=== PATIENT | male | born 1955 | race Caucasian/White ===

== ENCOUNTER 2024-04-15 22:45 | Inpatient (IN) | payer MEDICARE ==
[~2024-04-15] VITALS: Ht 170.2 cm; Wt 108.9 kg
[2024-04-16] MEDS: VANCOMYCIN HCL 1.25 GM in IV D5W 260 ML IV ONE (00:30)
[2024-04-16] MEDS ORDERED: VANCOMYCIN 500 MG VIAL ONE (00:36)
[2024-04-16] MEDS ORDERED: VANCOMYCIN 1 GM /D5W 250 ML PB IV ONE (00:37)
[2024-04-16 00:47] LABS: BASOPHILS # (AUTO) 0.1 K/uL (0.0-0.2); BASOPHILS % (AUTO) 0.4 % (0.0-2.0); EOSINOPHILS # (AUTO) 0.1 K/uL (0.0-0.7); EOSINOPHILS % (AUTO) 0.7 % (0.0-6.0); HEMATOCRIT 42 % (39-51); HEMOGLOBIN 14.2 g/dL (13.5-17.5); LYMPHOCYTES # (AUTO) 1.6 K/uL (0.8-4.8); LYMPHOCYTES % (AUTO) 10.3 % (20.0-44.0); MEAN CORPUSCULAR HEMOGLOBIN 31 PG (26.0-33.0); MEAN CORPUSCULAR HGB CONC 34 g/dl (31.0-36.0); MEAN CORPUSCULAR VOLUME 91 fL (80-96); MONOCYTES # (AUTO) 1.2 K/uL (0.1-1.30); MONOCYTES % (AUTO) 7.5 % (2.0-12.0); NEUTROPHILS # (AUTO) 12.7 K/uL (1.8-8.9); NEUTROPHILS % (AUTO) 81.1 % (43.0-81.0); PLATELET COUNT (AUTO) 389 K/uL (150-450); RED BLOOD CELL COUNT(AUTO) 4.64 MIL/uL (4.5-6.0); RED CELL DISTRIBUTION WIDTH 13.3 % (11.5-15.0); WHITE BLOOD COUNT (AUTO) 15.7 K/uL (4.3-11.0)
[2024-04-16 00:50] LABS: CALCIUM, SERUM 9.4 mg/dL (8.5-10.1); CREATININE 0.8 mg/dL (0.6-1.3); POTASSIUM 4.3 mmol/L (3.5-5.1)
[2024-04-16 00:55] LABS: ALBUMIN 2.8 g/dL (3.4-5.0); BILIRUBIN,TOTAL 0.5 mg/dL (0.2-1.0); TOTAL PROTEIN, SERUM 8.1 g/dL (6.4-8.2)
[2024-04-16] MEDS ORDERED: DEXTROSE 50%-WATER 50 ML DISP.SYRIN IV PRN (02:30)
[2024-04-16] MEDS ORDERED: MAG HYDROX/AL HYDROX/SIMETH 30 ML UDC PO PRN (02:30)
[2024-04-16] MEDS ORDERED: HYDROCODONE/APAP 10/325MG TABLET PO PRN (02:30)
[2024-04-16] MEDS ORDERED: ONDANSETRON HCL/PF 4 MG/2 ML VIAL IVP PRN (02:30)
[2024-04-16] MEDS ORDERED: MAGNESIUM HYDROXIDE 30 ML UDC PO PRN (02:30)
[2024-04-16] MEDS ORDERED: HYDROCODONE/APAP 5/325MG TABLET PO PRN (02:30)
[2024-04-16] MEDS ORDERED: Z GUARD REMEDY 4 OZ OINT TP PRN (02:30)
[2024-04-16 04:00] VITALS: BP 137/72; TEMP 98.2; O2SAT 97
[2024-04-16] MEDS: IV NS 0.9% 1,000 ML IV SCH (04:08)
[2024-04-16] MEDS ORDERED: PIPERACI/TAZO 3.375GM/D5W 50ML PB IV ONE (04:48)
[2024-04-16] MEDS: PIPERACILLIN /TAZOBACTAM 3.375 G in IV D5W 50 ML IV ONE (04:52)
[2024-04-16 08:00] VITALS: BP 124/73; TEMP 98.8; O2SAT 97
[2024-04-16] MEDS: BLOOD SUGAR DIAGNOSTIC 1 EACH STRIP IN SCH (08:19)
[2024-04-16] MEDS ORDERED: ASPI-1165 PO (08:29)
[2024-04-16] MEDS ORDERED: INSU100I14 SQ (08:29)
[2024-04-16] MEDS ORDERED: INSU100I30 SQ (08:29)
[2024-04-16] MEDS: INSULIN REGULAR, HUMAN 100 UNIT/ML 3 ML VIAL SQ PRN (08:34)
[2024-04-16] MEDS: PANTOPRAZOLE 40 MG VIAL IV SCH (08:35)
[2024-04-16] MEDS: VANCOMYCIN 500 MG in IV D5W 100ml IV ONE (10:33)
[2024-04-16] MEDS: PIPERACILLIN /TAZOBACTAM 3.375 G in IV D5W 50 ML IV SCH (12:06)
[2024-04-16] MEDS ORDERED: ASPIRIN/ACETAMINOPHEN/CAFFEINE 1 EACH TABLET PO PRN (15:30)
[2024-04-16 16:00] VITALS: BP 129/74; TEMP 99; O2SAT 97
[2024-04-16] MEDS: VANCOMYCIN 1 GM in IV D5W 250ml IV SCH (17:48)
[2024-04-16 20:00] VITALS: BP 126/67; TEMP 99; O2SAT 96
[2024-04-16] MEDS: INSULIN GLARGINE, 100 UNIT/ML CARTRIDGE SQ SCH (22:15)
[2024-04-17 04:00] VITALS: BP 102/58; TEMP 98.4; O2SAT 98
[2024-04-17 07:09] LABS: BASOPHILS % (AUTO) 0.2 % (0.0-2.0); EOSINOPHILS # (AUTO) 0.1 K/uL (0.0-0.7); EOSINOPHILS % (AUTO) 0.6 % (0.0-6.0); HEMATOCRIT 39 % (39-51); HEMOGLOBIN 13.3 g/dL (13.5-17.5); LYMPHOCYTES # (AUTO) 2.6 K/uL (0.8-4.8); LYMPHOCYTES % (AUTO) 17.5 % (20.0-44.0); MEAN CORPUSCULAR HEMOGLOBIN 31 PG (26.0-33.0); MEAN CORPUSCULAR HGB CONC 34 g/dl (31.0-36.0); MEAN CORPUSCULAR VOLUME 91 fL (80-96); MONOCYTES # (AUTO) 1.3 K/uL (0.1-1.30); MONOCYTES % (AUTO) 8.5 % (2.0-12.0); NEUTROPHILS # (AUTO) 10.8 K/uL (1.8-8.9); NEUTROPHILS % (AUTO) 73.2 % (43.0-81.0); PLATELET COUNT (AUTO) 401 K/uL (150-450); RED BLOOD CELL COUNT(AUTO) 4.29 MIL/uL (4.5-6.0); RED CELL DISTRIBUTION WIDTH 13.3 % (11.5-15.0); WHITE BLOOD COUNT (AUTO) 14.8 K/uL (4.3-11.0)
[2024-04-17 07:25] LABS: CALCIUM, SERUM 9.1 mg/dL (8.5-10.1); CREATININE 0.8 mg/dL (0.6-1.3); MAGNESIUM 2.6 mg/dL (1.8-2.4); PHOSPHORUS 2.6 mg/dL (2.5-4.9); POTASSIUM 4.1 mmol/L (3.5-5.1)
[2024-04-17 08:27] VITALS: BP 105/57; TEMP 98.4; O2SAT 96
[2024-04-17] MEDS ORDERED: DEXTROSE 50%-WATER 50 ML DISP.SYRIN IV PRN (12:30)
[2024-04-17 12:35] LABS: INR 1.06 (0.91-1.10); PARTIAL THROMBOPLASTIN TIME 32.2 SEC (24.3-34.3); PROTHROMBIN TIME 11.2 SECS (9.2-11.1)
[2024-04-17] MEDS ORDERED: BUPIVACAINE 0.5 % PF 150 MG/30 ML VIAL ONE (14:36)
[2024-04-17] MEDS ORDERED: ANESTHESIA TRAY IN PYXIS 1 EA TRAY MC ONE (14:36)
[2024-04-17] MEDS ORDERED: LIDOCAINE HCL/MPF 1% 30 ML VIAL IJ ONE (14:36)
[2024-04-17] MEDS ORDERED: FENTANYL PF 100MCG/2ML AMPUL ONE (15:17)
[2024-04-17 17:00] VITALS: BP 133/72; TEMP 97.8; O2SAT 97
[2024-04-17] MEDS: BLOOD SUGAR DIAGNOSTIC 1 EACH STRIP VI SCH (17:06)
[2024-04-17] MEDS: VANCOMYCIN HCL 1.25 GM in IV D5W 250 ML IV SCH (17:27)
[2024-04-17] MEDS: INSULIN REGULAR, HUMAN 100 UNIT/ML 3 ML VIAL SQ PRN (18:29)
[2024-04-17 20:27] VITALS: BP 155/86; TEMP 98.6; O2SAT 97
[2024-04-17] MEDS: LORATADINE 10 MG TABLET PO ONE (23:02)
[2024-04-18] MEDS: ACETAMINOPHEN 325 MG TABLET PO PRN (02:52)
[2024-04-18 04:31] VITALS: BP 116/68; TEMP 99.5; O2SAT 96
[2024-04-18 06:23] LABS: BASOPHILS % (AUTO) 0.3 % (0.0-2.0); EOSINOPHILS % (AUTO) 0.2 % (0.0-6.0); HEMATOCRIT 41 % (39-51); HEMOGLOBIN 13.6 g/dL (13.5-17.5); LYMPHOCYTES # (AUTO) 1.7 K/uL (0.8-4.8); LYMPHOCYTES % (AUTO) 11.7 % (20.0-44.0); MEAN CORPUSCULAR HEMOGLOBIN 30 PG (26.0-33.0); MEAN CORPUSCULAR HGB CONC 33 g/dl (31.0-36.0); MEAN CORPUSCULAR VOLUME 91 fL (80-96); MONOCYTES # (AUTO) 1.1 K/uL (0.1-1.30); MONOCYTES % (AUTO) 7.3 % (2.0-12.0); NEUTROPHILS # (AUTO) 11.7 K/uL (1.8-8.9); NEUTROPHILS % (AUTO) 80.5 % (43.0-81.0); PLATELET COUNT (AUTO) 397 K/uL (150-450); RED BLOOD CELL COUNT(AUTO) 4.55 MIL/uL (4.5-6.0); RED CELL DISTRIBUTION WIDTH 13.1 % (11.5-15.0); WHITE BLOOD COUNT (AUTO) 14.5 K/uL (4.3-11.0)
[2024-04-18 06:35] LABS: CALCIUM, SERUM 9.4 mg/dL (8.5-10.1); CREATININE 0.8 mg/dL (0.6-1.3); POTASSIUM 3.9 mmol/L (3.5-5.1)
[2024-04-18] MEDS: *INSULIN REGULAR(HUMULIN R)HUM 100 UNIT/ML VIAL SQ PRN (07:57)
[2024-04-18 08:00] VITALS: BP 117/47; TEMP 98.4; O2SAT 96
[2024-04-18] MEDS: PANTOPRAZOLE 40 MG TABLET.DR PO SCH (08:03)
[2024-04-18 16:00] VITALS: BP 136/66; TEMP 98.6; O2SAT 94
[2024-04-18 22:00] VITALS: BP 153/77; TEMP 98.8; O2SAT 96
[2024-04-19 04:00] VITALS: BP 129/69; TEMP 98.7; O2SAT 98
[2024-04-19 05:40] LABS: BASOPHILS # (AUTO) 0.1 K/uL (0.0-0.2); BASOPHILS % (AUTO) 0.5 % (0.0-2.0); EOSINOPHILS # (AUTO) 0.1 K/uL (0.0-0.7); EOSINOPHILS % (AUTO) 1.1 % (0.0-6.0); HEMATOCRIT 38 % (39-51); HEMOGLOBIN 12.8 g/dL (13.5-17.5); LYMPHOCYTES # (AUTO) 2.3 K/uL (0.8-4.8); MEAN CORPUSCULAR HEMOGLOBIN 31 PG (26.0-33.0); MEAN CORPUSCULAR HGB CONC 34 g/dl (31.0-36.0); MEAN CORPUSCULAR VOLUME 91 fL (80-96); MONOCYTES # (AUTO) 1.2 K/uL (0.1-1.30); NEUTROPHILS % (AUTO) 72.4 % (43.0-81.0); PLATELET COUNT (AUTO) 385 K/uL (150-450); RED BLOOD CELL COUNT(AUTO) 4.16 MIL/uL (4.5-6.0); RED CELL DISTRIBUTION WIDTH 13.1 % (11.5-15.0); WHITE BLOOD COUNT (AUTO) 13.8 K/uL (4.3-11.0)
[2024-04-19 05:54] LABS: CALCIUM, SERUM 9.4 mg/dL (8.5-10.1); CREATININE 0.8 mg/dL (0.6-1.3); POTASSIUM 3.8 mmol/L (3.5-5.1)
[2024-04-19 08:00] VITALS: BP 167/88; TEMP 98.1; O2SAT 97
[2024-04-19 16:00] VITALS: BP 157/80; TEMP 98.2; O2SAT 96
[2024-04-19 20:00] VITALS: BP 158/74; TEMP 98.2; O2SAT 98
[2024-04-19] MEDS: LORATADINE 10 MG TABLET PO PRN (22:48)
[2024-04-19] MEDS ORDERED: CEFTRIAXONE 1GM BAG (ER ONLY) 50 ML IV ONE (22:56)
[2024-04-19] MEDS: CEFTRIAXONE 1 G in IV D5W 50 ML IV SCH (22:57)
[2024-04-20 04:00] VITALS: BP 145/75; TEMP 98; O2SAT 97
[2024-04-20 07:24] LABS: CALCIUM, SERUM 9.2 mg/dL (8.5-10.1); CREATININE 0.6 mg/dL (0.6-1.3); POTASSIUM 4.7 mmol/L (3.5-5.1)
[2024-04-20 07:28] LABS: BASOPHILS % (AUTO) 0.4 % (0.0-2.0); EOSINOPHILS # (AUTO) 0.2 K/uL (0.0-0.7); EOSINOPHILS % (AUTO) 1.8 % (0.0-6.0); HEMATOCRIT 39 % (39-51); HEMOGLOBIN 13.3 g/dL (13.5-17.5); LYMPHOCYTES # (AUTO) 2.4 K/uL (0.8-4.8); LYMPHOCYTES % (AUTO) 22.2 % (20.0-44.0); MEAN CORPUSCULAR HEMOGLOBIN 31 PG (26.0-33.0); MEAN CORPUSCULAR HGB CONC 34 g/dl (31.0-36.0); MEAN CORPUSCULAR VOLUME 91 fL (80-96); MONOCYTES # (AUTO) 0.8 K/uL (0.1-1.30); MONOCYTES % (AUTO) 7.9 % (2.0-12.0); NEUTROPHILS # (AUTO) 7.2 K/uL (1.8-8.9); NEUTROPHILS % (AUTO) 67.7 % (43.0-81.0); PLATELET COUNT (AUTO) 380 K/uL (150-450); RED BLOOD CELL COUNT(AUTO) 4.28 MIL/uL (4.5-6.0); RED CELL DISTRIBUTION WIDTH 12.7 % (11.5-15.0); WHITE BLOOD COUNT (AUTO) 10.7 K/uL (4.3-11.0)
[2024-04-20 08:00] VITALS: BP_SYST 165; BP_SYST 186; BP_DIAS 72; BP_DIAS 94; TEMP 98.4; O2SAT 99
[2024-04-20] MEDS ORDERED: IV NS 0.9% 1,000 ML IV PRN (09:45)
[2024-04-20] MEDS ORDERED: DOXY-326 PO (13:03)
[2024-04-20] MEDS ORDERED: Hydrocodone/Apap 5/325MG PO (13:03)
[2024-04-20] MEDS ORDERED: LEVO750T46 PO (13:03)
[2024-04-20] MEDS ORDERED: HYDR-3980 PO (13:04)
[2024-04-20] MEDS ORDERED: VANCOMYCIN 1.5 GM in IV D5W 500 ML IV SCH (17:00)
== END 2024-04-20 18:57 | disposition home health service (06) | DRG 617 ==
LOC: ER 22:48 → TELE1 04-16 01:48 → MEDSG1 04-16 03:21
PROVIDERS: ADMIT Nurse Practitioner Acute Care; ATTEND Nurse Practitioner Acute Care
PROC: 0Y6P0Z0 Detachment at Right 1st Toe, Complete, Open Approach (ICD-10-PCS; principal; 2024-04-17)
DX: E11.69 Type 2 diabetes mellitus with other specified complication (principal); E44.0 Moderate protein-calorie malnutrition; L02.611 Cutaneous abscess of right foot; L03.115 Cellulitis of right lower limb; L97.518 Non-pressure chronic ulcer of other part of right foot with other specified severity; M86.8X7 Other osteomyelitis, ankle and foot; L03.031 Cellulitis of right toe; E11.621 Type 2 diabetes mellitus with foot ulcer; E11.42 Type 2 diabetes mellitus with diabetic polyneuropathy; E66.01 Morbid (severe) obesity due to excess calories; E88.09 Other disorders of plasma-protein metabolism, not elsewhere classified; Z68.37 Body mass index [BMI] 37.0-37.9, adult; D72.829 Elevated white blood cell count, unspecified
CPT/HCPCS: 36415; 73630-TC; 73718-TC; 80048-TC; 80053-TC; 80202-TC; 82962-TC; 83605-TC; 83735-TC; 84100-TC; 85025-TC; 85730-TC; 86850-TC; 87040-TC; 87081-TC; A4217; A4223; A6253; A6403; G0378; J0696; J1100; J1815; J2405; J2470; J2543; J2704; J2765; J3010; J3370; J3371; J3490; J7030; J7060

== ENCOUNTER 2024-04-22 09:59 | Outpatient (CLI) | payer MEDICARE ==
[~2024-04-22 09:59] MED LIST: ASPI-1165 PO; DOXY-326 PO; HYDR-3980 PO; Hydrocodone/Apap 5/325MG PO; INSU100I14 SQ; INSU100I30 SQ; LEVO750T46 PO
== END 2024-04-22 23:59 | disposition home health service (06) ==
LOC: WOU 09:59
PROVIDERS: ATTEND Student in an Organized Health Care Education/Training Program
DX: L03.115 Cellulitis of right lower limb (principal); E11.9 Type 2 diabetes mellitus without complications; Z79.4 Long term (current) use of insulin

== ENCOUNTER 2024-05-02 10:30 | Outpatient (CLI) | payer MEDICARE | END 2024-05-02 23:59 | disposition home health service (06) | LOC: WOU 10:30 | PROVIDERS: ATTEND Student in an Organized Health Care Education/Training Program | DX: E11.621 Type 2 diabetes mellitus with foot ulcer (principal); L97.512 Non-pressure chronic ulcer of other part of right foot with fat layer exposed; T87.81 Dehiscence of amputation stump; L03.115 Cellulitis of right lower limb; Z79.4 Long term (current) use of insulin | CPT/HCPCS: 11042 ==